=== PATIENT | female | born 1955 | race Caucasian/White ===

== ENCOUNTER → 2020-06-16 | Outpatient (CLI) | payer OTHER | END | disposition home or self-care (01) | LOC: SHCH 15:22 | PROVIDERS: ATTEND Internal Medicine Cardiovascular Disease | DX: R94.31 Abnormal electrocardiogram [ECG] [EKG] (principal) | CPT/HCPCS: 93306; 93356 ==

== ENCOUNTER → 2020-06-28 | Outpatient (CLI) | payer OTHER ==
[~2020-06-28] MED LIST: AMINOPHYLLINE 250MG/10 ML VIAL IV SCH; REGADENOSON 0.4 MG/5 ML PF SYG IVP SCH
[2020-06-28 10:54] VITALS: BP 153/89
[2020-06-28 10:56] VITALS: BP 150/91
[2020-06-28 10:58] VITALS: BP 154/95
--- NOTE | 2020-06-28 11:45 | NUR ---
AMINOPHYLLINE 50 MG GIVEN SLOW IV PUSH @ 1055 PER PROTOCOL FOR ELEVATED HR POST LEXISCAN. 1058 HR IS WNL @ 88.
== END | disposition home or self-care (01) ==
LOC: SHCH 08:47
PROVIDERS: ATTEND Internal Medicine Cardiovascular Disease
DX: R01.1 Cardiac murmur, unspecified (principal); R94.31 Abnormal electrocardiogram [ECG] [EKG]
CPT/HCPCS: 78452; 93017; 96374; A9500 ×2; J2785; J0280

== ENCOUNTER 2021-06-19 07:05 | Day surgery (SDC) | payer MEDICARE ==
[2021-06-13 11:50] LABS: BASOPHILS % (AUTO) 0.4 % (0.0-5.0); EOSINOPHILS % (AUTO) 0.7 % (0.0-8.0); HEMATOCRIT 42.9 % (36-48); LYMPHOCYTES % (AUTO) 21.5 % (21.0-51.0); MEAN CORPUSCULAR HEMOGLOBIN 29.7 pg (27.0-33.0); MEAN CORPUSCULAR HGB CONC 33.3 g/dL (32.0-36.0); MEAN CORPUSCULAR VOLUME 89.2 fL (79-99); MONOCYTES % (AUTO) 6.4 % (3.0-13.0); NEUTROPHILS % (AUTO) 70.8 % (40.0-77.0); PLATELET COUNT (AUTO) 243 K/uL (130-400); RED BLOOD CELL COUNT(AUTO) 4.81 MIL/uL (4.00-5.50); RED CELL DISTRIBUTION WIDTH 11.9 % (11.0-15.5); WHITE BLOOD COUNT (AUTO) 8.4 K/uL (4.8-10.8)
[2021-06-13 12:08] LABS: POTASSIUM 3.9 mmol/L (3.5-5.1)
[2021-06-16 12:31] VITALS: BP 113/69
[~2021-06-19] VITALS: Ht 154.9 cm; Wt 75.7 kg
[2021-06-19] VITALS (18 sets, daily range): BP systolic 108–156; BP diastolic 57–88
[~2021-06-19 07:05] MED LIST changes: -AMINOPHYLLINE 250MG/10 ML VIAL IV SCH; +ASCO250T22 PO; +BIOT10006 PO; +LEVO25TA54 PO; +MAGN250T10 PO; +METO-408 PO; +PRAV40TA3 PO; -REGADENOSON 0.4 MG/5 ML PF SYG IVP SCH; +TELM1TAB31 PO; +TUMERIC CURCUMIN PO; +UBID100C45 PO; +VITA1CAP85 SL; +VITAMIN D3 PO; +[UNRECOGNIZED DRUG - OTHER] PO
[2021-06-19] MEDS ORDERED: PROPOFOL 10 MG/ML 20ML VIAL IV ONE (07:41)
[2021-06-19] MEDS ORDERED: ONDANSETRON 4MG INJ ONE (07:41)
[2021-06-19] MEDS ORDERED: DEXAMETHASONE SOD PHOSPHATE 10MG/ML 1ML VIAL ONE (07:41)
[2021-06-19] MEDS ORDERED: LIDOCAINE PF 100MG/5ML (2%) SYRINGE 5ML ONE (07:41)
[2021-06-19] MEDS ORDERED: SUCCINYLCHOLINE 200MG/10ML SYR ONE (07:41)
[2021-06-19] MEDS ORDERED: GLYCOPYRROLATE 1 MG/5 ML SYRINGE ONE (07:41)
[2021-06-19] MEDS ORDERED: MEPERIDINE-PF 25 MG/ML SYG ONE ×3 (07:42→10:48)
[2021-06-19] MEDS ORDERED: MIDAZOLAM HCL 1 MG/ML 2ML VIAL ONE (07:42)
[2021-06-19] MEDS ORDERED: NEOSTIGMINE 5MG/5ML SYR IV ONE (07:42)
[2021-06-19] MEDS ORDERED: FENTANYL CITRATE PF 50 MCG/1 ML 2ML VIAL ONE (07:42)
[2021-06-19] MEDS ORDERED: ROCURONIUM 10MG/1ML SYR 10 MG/ML ML ONE (07:42)
[2021-06-19] MEDS ORDERED: LACTATED RINGERS 1000ML 1,000 ML IV ONE (07:46)
[2021-06-19] MEDS ORDERED: CEFAZOLIN SODIUM 1 GM VIAL ONE (07:46)
[2021-06-19] MEDS ORDERED: BUPIVACAINE/PF 0.5% 10ML VIAL ONE (07:49)
[2021-06-19] MEDS ORDERED: PHENYLEPHRINE HCL 10 MG/ML 1ML VIAL IV ONE (09:37)
[2021-06-19] MEDS ORDERED: LIDOCAINE HCL MPF 1% 5ML VIAL ONE (10:03)
[2021-06-19] MEDS ORDERED: ACETAMINOPHEN WITH CODEINE 1 TAB TAB ONE (11:38)
== END 2021-06-19 12:10 | disposition home or self-care (01) ==
LOC: DAH 07:05
PROVIDERS: ATTEND Surgery
DX: K43.0 Incisional hernia with obstruction, without gangrene (principal); I10 Essential (primary) hypertension; K21.9 Gastro-esophageal reflux disease without esophagitis; Z90.710 Acquired absence of both cervix and uterus; Z88.1 Allergy status to other antibiotic agents; Z88.2 Allergy status to sulfonamides; Z88.6 Allergy status to analgesic agent
CPT/HCPCS: 36415; 49561; 71045; 80048; 85025; 87635; 93005; A4215; A4221; A4222; A4223; A4452; A4649; A4663; A4930; A6260; C9803; J0330; J0690; J1100; J2001; J2175 ×3; J2250; J2370; J2405; J2704; J2710; J3010; J3490 ×3; J7120

== ENCOUNTER → 2022-03-22 | Outpatient (CLI) | payer MEDICARE | END | disposition home or self-care (01) | LOC: SHCH 14:37 | PROVIDERS: ATTEND Internal Medicine Cardiovascular Disease | DX: I87.2 Venous insufficiency (chronic) (peripheral) (principal); I80.201 Phlebitis and thrombophlebitis of unspecified deep vessels of right lower extremity | CPT/HCPCS: 93970 ==

== ENCOUNTER 2023-06-07 07:45 | Inpatient (IN) | payer MEDICARE ==
[2023-06-05 13:21] VITALS: BP 132/66; PULSE 89; RESP 17
[2023-06-05 13:26] LABS: BASOPHILS # (AUTO) 0.03 K/uL (0.00-0.20); BASOPHILS % (AUTO) 0.4 % (0.0-5.0); EOSINOPHILS # (AUTO) 0.03 K/uL (0.00-0.70); EOSINOPHILS % (AUTO) 0.4 % (0.0-8.0); HEMATOCRIT 43.5 % (36-48); IMMATURE GRANULOCYTE ABSOLUTE 0.02 K/uL (0-1); LYMPHOCYTES # (AUTO) 1.6 K/uL (1.0-4.8); LYMPHOCYTES % (AUTO) 21.7 % (21.0-51.0); MEAN CORPUSCULAR HEMOGLOBIN 29.5 pg (27.0-33.0); MEAN CORPUSCULAR HGB CONC 33.8 g/dL (32.0-36.0); MEAN CORPUSCULAR VOLUME 87.2 fL (79-99); MONOCYTES # (AUTO) 0.5 K/uL (0.1-1.0); MONOCYTES % (AUTO) 7.3 % (3.0-13.0); NEUTROPHILS # (AUTO) 5.1 K/uL (1.8-7.7); NEUTROPHILS % (AUTO) 69.9 % (40.0-77.0); PLATELET COUNT (AUTO) 272 K/uL (130-400); RED BLOOD CELL COUNT(AUTO) 4.99 MIL/uL (4.00-5.50); WHITE BLOOD COUNT (AUTO) 7.2 K/uL (4.8-10.8)
[2023-06-05 13:37] LABS: CREATININE 1.1 mg/dL (0.5-1.5); POTASSIUM 3.6 mmol/L (3.5-5.1)
[2023-06-05 13:47] LABS: INR 0.99 (0.85-1.15); PARTIAL THROMBOPLASTIN TIME 27.9 SEC (26.3-35.5); PROTHROMBIN TIME 10.7 SEC (9.6-11.6)
[2023-06-07] VITALS (28 sets, daily range): BP systolic 104–141; BP diastolic 55–91; PULSE 69–105; RESP 15–18; O2SAT 100
[~2023-06-07] VITALS: Ht 156.2 cm; Wt 75.8 kg
[~2023-06-07 07:45] MED LIST changes: +CRAN400T3 PO; +DEXAMETHASONE SOD PHOSPHATE 10MG/ML 1ML VIAL ONE; +FENTANYL CITRATE PF 50 MCG/1 ML 5ML AMP IV ONE; +FISH1CAP27 PO; +FLUT16H NASAL; +GABA-529 PO; +GLYCOPYRROLATE 1 MG/5 ML SYRINGE ONE; +KETO1DRO3 OP; +LACTATED RINGERS 1000ML 1,000 ML IV ONE; +LIDOCAINE PF 100MG/5ML (2%) SYRINGE 5ML ONE; +MIDAZOLAM HCL 1 MG/ML 2ML VIAL ONE; +NEOSTIGMINE 5MG/5ML SYR IV ONE; +ONDANSETRON 4MG INJ ONE; +PANT40GR PO; +PROPOFOL 10 MG/ML 20ML VIAL IV ONE; +ROCURONIUM 10MG/1ML SYR 10 MG/ML ML ONE; +SUCCINYLCHOLINE 200MG/10ML SYR ONE; +VITA800012 PO
[2023-06-07] MEDS ORDERED: LIDOCAINE HCL-MPF 2% 10ML AMP IJ ONE (07:58)
[2023-06-07] MEDS ORDERED: MIDAZOLAM HCL 1 MG/ML 5ML VIAL ONE (08:05)
[2023-06-07] MEDS ORDERED: KETAMINE 50MG/ML SYRINGE 50 MG/ML DISP.SYRIN ONE (08:05)
[2023-06-07] MEDS: CEFAZOLIN SODIUM 2 GM VIAL ONE ×2 (08:09→09:35)
[2023-06-07] MEDS ORDERED: BUPIVACAINE/PF 0.5% 10ML VIAL ONE (08:34)
[2023-06-07] MEDS ORDERED: ROPIVACAINE 0.5% 5MG/ML 30ML IJ ONE (09:08)
[2023-06-07] MEDS ORDERED: HYDROMORPHONE 1 MG INJ ONE (09:10)
[2023-06-07] MEDS ORDERED: FENTANYL CITRATE PF 50 MCG/1 ML 5ML AMP IV ONE (09:38)
[2023-06-07] MEDS ORDERED: EPHEDRINE SULFATE 50 MG/ML AMPULE ONE (09:59)
[2023-06-07] MEDS ORDERED: ONDANSETRON 4MG INJ ONE (11:09)
[2023-06-07] MEDS ORDERED: MEPERIDINE-PF 25 MG/ML SYG ONE ×2 (11:09→11:22)
[2023-06-07] MEDS ORDERED: KETOROLAC 15MG/ML VIAL (15MG/ML) ONE (11:42)
[2023-06-07] MEDS ORDERED: MORPHINE 4 MG SYG IM PRN (13:00)
[2023-06-07] MEDS ORDERED: CEFAZOLIN SODIUM 2 GM VIAL IVPB SCH (13:00)
[2023-06-07] MEDS ORDERED: KETOROLAC 15MG/ML VIAL (15MG/ML) IM PRN (13:00)
[2023-06-07] MEDS: LACTATED RINGERS 1000ML 1,000 ML IV SCH ×2 (15:34→22:17)
[2023-06-07] MEDS: CEFAZOLIN SODIUM 2 GM VIAL IVPB SCH (17:12)
[2023-06-07] MEDS: ONDANSETRON 4MG INJ IVP PRN (20:31)
[2023-06-07] MEDS: KETOROLAC 30MG VIAL (30MG/ML) IV PRN (21:09)
[2023-06-08] VITALS (8 sets, daily range): BP systolic 118–148; BP diastolic 65–80; PULSE 80–106; RESP 18–20; O2SAT 94–100
[2023-06-08] MEDS: CEFAZOLIN SODIUM 2 GM VIAL IVPB SCH ×3 (00:19→16:34)
[2023-06-08] MEDS ORDERED: MORPHINE 4 MG SYG IV PRN (01:00)
[2023-06-08] MEDS ORDERED: KETOROLAC 30MG VIAL (30MG/ML) IV PRN (01:00)
[2023-06-08] MEDS: LACTATED RINGERS 1000ML 1,000 ML IV SCH ×2 (02:41→19:00)
[2023-06-08] MEDS: MORPHINE 4 MG SYG IV PRN ×2 (05:05→12:52)
[2023-06-08 05:07] LABS: BASOPHILS # (AUTO) 0.02 K/uL (0.00-0.20); BASOPHILS % (AUTO) 0.1 % (0.0-5.0); IMMATURE GRANULOCYTE ABSOLUTE 0.06 K/uL (0-1); LYMPHOCYTES # (AUTO) 0.8 K/uL (1.0-4.8); LYMPHOCYTES % (AUTO) 6.2 % (21.0-51.0); MEAN CORPUSCULAR HEMOGLOBIN 29.9 pg (27.0-33.0); MEAN CORPUSCULAR HGB CONC 33.7 g/dL (32.0-36.0); MEAN CORPUSCULAR VOLUME 88.8 fL (79-99); MONOCYTES # (AUTO) 1.2 K/uL (0.1-1.0); MONOCYTES % (AUTO) 8.5 % (3.0-13.0); NEUTROPHILS # (AUTO) 11.5 K/uL (1.8-7.7); NEUTROPHILS % (AUTO) 84.8 % (40.0-77.0); PLATELET COUNT (AUTO) 200 K/uL (130-400); RED BLOOD CELL COUNT(AUTO) 3.94 MIL/uL (4.00-5.50); WHITE BLOOD COUNT (AUTO) 13.5 K/uL (4.8-10.8)
[2023-06-08] MEDS: ONDANSETRON 4MG INJ IVP PRN ×2 (05:14→12:53)
[2023-06-08 05:15] LABS: CREATININE 0.9 mg/dL (0.5-1.5); POTASSIUM 3.8 mmol/L (3.5-5.1)
[2023-06-08 05:41] LABS: WBC MORPHOLOGY CONSISTENT W/DIFF
[2023-06-08] MEDS: KETOROLAC 30MG VIAL (30MG/ML) IV PRN (09:53)
[2023-06-08] MEDS ORDERED: DOCUSATE SODIUM 100 MG CAP PO ONE (16:30)
[2023-06-08] MEDS: TRAMADOL /APAP 37.5MG/325MG TAB PO SCH ×2 (16:49→22:34)
[2023-06-08] MEDS: SIMETHICONE 80 MG TAB.CHEW PO PRN (19:21)
[2023-06-08] MEDS: GABAPENTIN 100 MG CAPSULE PO SCH (20:36)
[2023-06-09] MEDS: CEFAZOLIN SODIUM 2 GM VIAL IVPB SCH ×2 (01:50→08:43)
[2023-06-09] MEDS: LACTATED RINGERS 1000ML 1,000 ML IV SCH ×2 (03:19→15:00)
[2023-06-09 04:00] VITALS: BP 148/82; PULSE 85; RESP 20
[2023-06-09] MEDS: TRAMADOL /APAP 37.5MG/325MG TAB PO SCH ×4 (05:09→22:33)
[2023-06-09] MEDS: SIMETHICONE 80 MG TAB.CHEW PO PRN ×3 (05:12→15:52)
[2023-06-09 08:00] VITALS: BP 135/92; PULSE 102; RESP 20; O2SAT 93
[2023-06-09] MEDS: GABAPENTIN 100 MG CAPSULE PO SCH ×3 (08:43→20:57)
[2023-06-09] MEDS: KETOROLAC 30MG VIAL (30MG/ML) IV PRN ×2 (08:44→20:58)
[2023-06-09 12:00] VITALS: BP 134/77; PULSE 94; RESP 20
[2023-06-09 16:00] VITALS: BP 133/83; PULSE 89; RESP 20
[2023-06-09 20:41] VITALS: BP 147/88; PULSE 84; RESP 18
[2023-06-09 21:00] VITALS: O2SAT 96
[2023-06-10] MEDS: LACTATED RINGERS 1000ML 1,000 ML IV SCH ×4 (00:04→21:47)
[2023-06-10 00:06] VITALS: BP 143/87; PULSE 87; RESP 18
[2023-06-10 03:56] VITALS: BP 134/88; PULSE 82; RESP 18
[2023-06-10] MEDS: TRAMADOL /APAP 37.5MG/325MG TAB PO SCH ×4 (04:27→22:30)
[2023-06-10 08:00] VITALS: BP 129/75; PULSE 72; RESP 14; O2SAT 91
[2023-06-10] MEDS: GABAPENTIN 100 MG CAPSULE PO SCH ×2 (09:00→21:40)
[2023-06-10] MEDS: KETOROLAC 30MG VIAL (30MG/ML) IV PRN (11:59)
[2023-06-10 12:00] VITALS: BP 132/87; PULSE 83; RESP 14
[2023-06-10 16:00] VITALS: BP 147/78; PULSE 87; RESP 14
[2023-06-10 20:27] VITALS: BP 160/86; PULSE 96; RESP 19
[2023-06-10] MEDS: PRAVASTATIN SODIUM 40 MG PO SCH (21:00)
[2023-06-10] MEDS: ACUVAIL OS SCH (21:00)
[2023-06-10] MEDS: METOPROLOL SUCCINATE 25 MG TAB.SR.24H PO SCH (21:40)
[2023-06-10] MEDS: SIMETHICONE 80 MG TAB.CHEW PO PRN (21:40)
[2023-06-10] MEDS: MORPHINE 4 MG SYG IV PRN (22:13)
[2023-06-11] VITALS (8 sets, daily range): BP systolic 124–162; BP diastolic 72–94; PULSE 61–94; RESP 18–19; O2SAT 93–98
[2023-06-11] MEDS: TRAMADOL /APAP 37.5MG/325MG TAB PO SCH ×4 (05:16→22:06)
[2023-06-11] MEDS: LEVOTHYROXINE 25 MCG TABLET PO SCH (06:11)
[2023-06-11] MEDS: GABAPENTIN 100 MG CAPSULE PO SCH ×2 (09:00→19:57)
[2023-06-11] MEDS ORDERED: ENOXAPARIN SODIUM 30 MG/0.3 ML SQ SCH (09:00)
[2023-06-11] MEDS ORDERED: NON-FORMULARY MEDICATION 1 EACH (Pantoprazole Sodium 40 MG) PO SCH (09:00)
[2023-06-11] MEDS: ACUVAIL OS SCH ×3 (09:00→20:06)
[2023-06-11 09:54] LABS: HEMATOCRIT 34.9 % (36-48); MEAN CORPUSCULAR HEMOGLOBIN 30.2 pg (27.0-33.0); MEAN CORPUSCULAR HGB CONC 34.4 g/dL (32.0-36.0); MEAN CORPUSCULAR VOLUME 87.7 fL (79-99); RED BLOOD CELL COUNT(AUTO) 3.98 MIL/uL (4.00-5.50)
[2023-06-11 10:09] LABS: CREATININE 0.9 mg/dL (0.5-1.5); POTASSIUM 3.1 mmol/L (3.5-5.1)
[2023-06-11] MEDS: LACTATED RINGERS 1000ML 1,000 ML IV SCH (10:57)
[2023-06-11] MEDS: AZITHROMYCIN 500MG+NS 250ML IVPB SCH (10:58)
[2023-06-11] MEDS: ENOXAPARIN SODIUM 30 MG/0.3 ML SQ SCH (10:58)
[2023-06-11] MEDS: CEFTRIAXONE 2GM VIAL IVPB SCH (11:00)
[2023-06-11] MEDS: KETOROLAC 30MG VIAL (30MG/ML) IV PRN ×2 (11:22→18:19)
[2023-06-11] MEDS: METOPROLOL SUCCINATE 25 MG TAB.SR.24H PO SCH (19:56)
[2023-06-11] MEDS: PRAVASTATIN SODIUM 40 MG PO SCH (20:06)
[2023-06-12] MEDS: TRAMADOL /APAP 37.5MG/325MG TAB PO SCH ×3 (04:43→19:48)
[2023-06-12] MEDS: LACTATED RINGERS 1000ML 1,000 ML IV SCH ×2 (04:44→19:45)
[2023-06-12 05:48] VITALS: BP 149/92; PULSE 81; RESP 18
[2023-06-12 05:49] LABS: HEMATOCRIT 35.2 % (36-48); MEAN CORPUSCULAR HEMOGLOBIN 29.6 pg (27.0-33.0); MEAN CORPUSCULAR HGB CONC 32.7 g/dL (32.0-36.0); MEAN CORPUSCULAR VOLUME 90.5 fL (79-99); RED BLOOD CELL COUNT(AUTO) 3.89 MIL/uL (4.00-5.50); WHITE BLOOD COUNT (AUTO) 8.1 K/uL (4.8-10.8)
[2023-06-12] MEDS: LEVOTHYROXINE 25 MCG TABLET PO SCH (06:08)
[2023-06-12 06:17] LABS: ALBUMIN 2.9 g/dL (3.5-5.0); BILIRUBIN,DIRECT 0.1 mg/dL (0.0-0.3); BILIRUBIN,TOTAL 0.3 mg/dL (0.2-1.0); CREATININE 0.9 mg/dL (0.5-1.5); TOTAL PROTEIN, SERUM 6.6 g/dL (6.0-8.3)
[2023-06-12 06:19] LABS: POTASSIUM 2.8 mmol/L (3.5-5.1)
[2023-06-12 08:00] VITALS: BP 138/78; PULSE 72; RESP 16; O2SAT 96
[2023-06-12] MEDS: AZITHROMYCIN 500MG+NS 250ML IVPB SCH (09:14)
[2023-06-12] MEDS: ENOXAPARIN SODIUM 30 MG/0.3 ML SQ SCH (09:17)
[2023-06-12] MEDS: GABAPENTIN 100 MG CAPSULE PO SCH ×2 (09:18→19:48)
[2023-06-12 12:00] VITALS: BP 146/88; PULSE 77; RESP 16
[2023-06-12] MEDS ORDERED: DOCUSATE NA 100MG/10ML UDCUP PO ONE (13:00)
[2023-06-12] MEDS: CEFTRIAXONE 2GM VIAL IVPB SCH (13:00)
[2023-06-12] MEDS ORDERED: LACTULOSE 20 GM/30 ML UDCUP PO PRN (13:30)
[2023-06-12 16:00] VITALS: BP 141/83; PULSE 72; RESP 14
[2023-06-12] MEDS ORDERED: POTASSIUM CHLORIDE 10% ELIXIR 20 MEQ/15 ML UDCUP PO PRN (18:30)
[2023-06-12] MEDS ORDERED: POTASSIUM CHLORIDE 20MEQ/100ML 100 ML IV PRN (18:30)
[2023-06-12 19:10] VITALS: O2SAT 94
[2023-06-12 19:22] VITALS: BP 161/83; PULSE 82; RESP 20
[2023-06-12] MEDS: METOPROLOL SUCCINATE 25 MG TAB.SR.24H PO SCH (19:48)
[2023-06-12] MEDS: KCL 20 MEQ ERTAB PO PRN ×4 (19:49→23:28)
[2023-06-12] MEDS: PRAVASTATIN SODIUM 40 MG PO SCH (19:49)
[2023-06-12] MEDS: ACUVAIL OS SCH (19:49)
[2023-06-13 00:07] VITALS: BP 148/92; PULSE 83; RESP 20
[2023-06-13 03:42] VITALS: BP 132/79; PULSE 76; RESP 16
[2023-06-13] MEDS: TRAMADOL /APAP 37.5MG/325MG TAB PO SCH ×2 (04:30→11:53)
[2023-06-13] MEDS: LEVOTHYROXINE 25 MCG TABLET PO SCH (05:01)
[2023-06-13 05:14] LABS: HEMATOCRIT 32.9 % (36-48); MEAN CORPUSCULAR HEMOGLOBIN 29.9 pg (27.0-33.0); MEAN CORPUSCULAR HGB CONC 33.1 g/dL (32.0-36.0); MEAN CORPUSCULAR VOLUME 90.4 fL (79-99); RED BLOOD CELL COUNT(AUTO) 3.64 MIL/uL (4.00-5.50); RED CELL DISTRIBUTION WIDTH 12.2 % (11.0-15.5); WHITE BLOOD COUNT (AUTO) 8.1 K/uL (4.8-10.8)
[2023-06-13 07:54] VITALS: BP 143/86; PULSE 79; RESP 18
[2023-06-13 08:00] VITALS: O2SAT 98
[2023-06-13] MEDS: ACUVAIL OS SCH (09:00)
[2023-06-13] MEDS: GABAPENTIN 100 MG CAPSULE PO SCH (09:11)
[2023-06-13] MEDS: AZITHROMYCIN 500MG+NS 250ML IVPB SCH (09:12)
[2023-06-13] MEDS: CEFTRIAXONE 2GM VIAL IVPB SCH (09:12)
[2023-06-13] MEDS: ENOXAPARIN SODIUM 30 MG/0.3 ML SQ SCH (09:12)
[2023-06-13 11:36] VITALS: BP 149/80; PULSE 76; RESP 18
== END 2023-06-13 14:20 | DRG 353 ==
LOC: DAH 07:45 → OBSVTOIN 07:46 → DAHIP 07:46 → DAH 07:46 → 3AH 12:10
PROVIDERS: ADMIT Surgery; ATTEND Surgery
PROC: 0WUF0JZ Supplement Abdominal Wall with Synthetic Substitute, Open Approach (ICD-10-PCS; principal; 2023-06-07 09:12)
DX: K43.2 Incisional hernia without obstruction or gangrene (principal); J18.9 Pneumonia, unspecified organism; K56.7 Ileus, unspecified; R33.9 Retention of urine, unspecified; E03.9 Hypothyroidism, unspecified; E66.09 Other obesity due to excess calories; I10 Essential (primary) hypertension; Z68.31 Body mass index [BMI] 31.0-31.9, adult
CPT/HCPCS: 36415; 71045; 74018; 80048; 80076; 84145; 85025; 85027; 85610; 85730; 93005; 93970; 97039; G0378; J0330; J0456; J0696; J1100; J1170; J1650; J1885; J2001; J2175; J2250; J2270; J2405; J2704; J2710; J2795; J3010; J3480; J3490; J7030; J7120; A4221; A4222; A4223; A4600; A4649; A4663; C1769; C1781; G8980-CI; G8983-CI; J0690

== ENCOUNTER → 2023-07-16 | Outpatient (CLI) | payer MEDICARE ==
[~2023-07-16] MED LIST changes: -DEXAMETHASONE SOD PHOSPHATE 10MG/ML 1ML VIAL ONE; -FENTANYL CITRATE PF 50 MCG/1 ML 5ML AMP IV ONE; -GLYCOPYRROLATE 1 MG/5 ML SYRINGE ONE; -LACTATED RINGERS 1000ML 1,000 ML IV ONE; -LIDOCAINE PF 100MG/5ML (2%) SYRINGE 5ML ONE; -MIDAZOLAM HCL 1 MG/ML 2ML VIAL ONE; -NEOSTIGMINE 5MG/5ML SYR IV ONE; -ONDANSETRON 4MG INJ ONE; -PROPOFOL 10 MG/ML 20ML VIAL IV ONE; -ROCURONIUM 10MG/1ML SYR 10 MG/ML ML ONE; -SUCCINYLCHOLINE 200MG/10ML SYR ONE
== END | disposition home or self-care (01) ==
LOC: SHCH 09:36
PROVIDERS: ATTEND Internal Medicine Cardiovascular Disease
DX: I34.0 Nonrheumatic mitral (valve) insufficiency (principal); I11.9 Hypertensive heart disease without heart failure; E11.9 Type 2 diabetes mellitus without complications; E78.5 Hyperlipidemia, unspecified; R60.9 Edema, unspecified
CPT/HCPCS: 93306

== ENCOUNTER → 2023-09-10 | Outpatient (CLI) | payer MEDICARE ==
[2023-09-10 23:09] VITALS: PULSE 83; RESP 10
[2023-09-10 23:34] VITALS: PULSE 79; RESP 10
[2023-09-11] VITALS (12 sets, daily range): PULSE 65–80; RESP 10–14
== END | disposition home or self-care (01) ==
LOC: SLP 20:35
PROVIDERS: ATTEND Nurse Practitioner Family
DX: G47.33 Obstructive sleep apnea (adult) (pediatric) (principal)
CPT/HCPCS: 95810

== ENCOUNTER → 2023-09-20 | Outpatient (CLI) | payer MEDICARE ==
[2023-09-20 22:46] VITALS: PULSE 70; RESP 8
[2023-09-20 23:30] VITALS: PULSE 72; RESP 6
[2023-09-21] VITALS (11 sets, daily range): PULSE 64–72; RESP 8–16
== END | disposition home or self-care (01) ==
LOC: SLP 20:36
PROVIDERS: ATTEND Nurse Practitioner Family
DX: G47.33 Obstructive sleep apnea (adult) (pediatric) (principal)
CPT/HCPCS: 95811

== ENCOUNTER 2025-06-09 22:30 | Emergency (ER) | payer MEDICARE ==
[~2025-06-09] VITALS: Ht 157.5 cm; Wt 73.5 kg
[~2025-06-09 22:30] MED LIST changes: +ASCO-515 PO; -ASCO250T22 PO; -PRAV40TA3 PO; +PRAV40TA62 PO; -TELM1TAB31 PO; +TELM1TAB86 PO
[2025-06-09 22:33] VITALS: TEMP 98
--- NOTE | 2025-06-09 23:31 | ERN ---
ED Note History of Present Illness Stated Complaint: C/O ABD PAIN, CHEST WALL PAIN AFTER FALL ON 05/24 Chief Complaint: Mechanical Fall Time Seen by MD: 22:34 Time Seen by Midlevel: 22:34 Dictation: The Patient is a 69-year-old female with a history of hypertension, hyperlipidemia who presents to the emergency department with left-sided anterior rib pain onset May 24 after she had an accidental fall. Patient reports that misstepped on gravel because the floor was not even causing her to fall to her left side. Patient denies any LOC or head trauma. Reports she did not seek help because she was taking care of her mother during that time. Patient reports pain is worse with movement. Reports it is worse when she lifts up her hands. Allergies: Coded Allergies: aspirin (Unverified Allergy, Unknown, 06/27/20) sulfamethoxazole (Unverified Allergy, Unknown, 06/27/20) trimethoprim (Unverified Allergy, Unknown, 06/27/20) Home Meds Reported Medications Vitamin A (Vitamin A) 2,400 Mcg Capsule, 2400 MCG PO AM, CAP 06/05/23 Cranberry Fruit (Cranberry) 400 Mg Tablet, 400 MG PO AM, TAB 06/05/23 [place]-3 Fatty Acids/Fish Oil ([place] 3 1,000 mg Softgel) 300 Mg-1,000 Mg Capsule, 1 EACH PO AM, CAP 06/05/23 Fluticasone Propionate (Flonase Nasal Phenix) 50 Mcg/Actuation Phenix, 50 MCG NASAL AM, SPRAY 06/05/23 Gabapentin (Gabapentin) 100 Mg Capsule, 100 MG PO HS, CAP 06/05/23 Pantoprazole Sodium (Pantoprazole Sodium) 40 Mg Granpkt.dr, 40 MG PO AM, PACK 06/05/23 Ketorolac Tromethamine/Pf (Acuvail 0.45% Ophth Solution) 0.45 % Droperette, 1 EACH OP TID, DROP 06/05/23 Ascorbic Acid (Vitamin C) 250 Mg Tablet, 250 MG PO NOON, TAB 06/16/21 Magnesium Oxide (Magnesium) 250 Mg Tablet, 250 MG PO QODAY, TAB 06/16/21 [Vitamin D3] No Conflict Check, 84798 UNITS PO NOON 06/16/21 [Vision Support] No Conflict Check, 1 TAB PO NOON 06/16/21 [Tumeric Curcumin] No Conflict Check, 500 MG PO NOON 06/16/21 Ubidecarenone (Co Q-10) 100 Mg Capsule, 100 MG PO NOON, CAP 06/16/21 Biotin (Biotin) 10,000 Mcg Tab.rapdis, 82643 MCG PO NOON, TAB 06/16/21 Vitamin B Complex (Vitamin B Complex) 1 Each Capsule, 1 EACH SL NOON, CAP 06/16/21 Metoprolol Succinate (Metoprolol Succinate) 25 Mg Tab.er.24h, 25 MG PO HS, TAB 06/16/21 Pravastatin Sodium (Pravastatin Sodium) 40 Mg Tablet, 40 MG PO HS, TAB 06/16/21 Levothyroxine Sodium (Levothyroxine Sodium) 25 Mcg Tablet, 25 MCG PO NOON, TAB 06/16/21 Telmisartan/Hydrochlorothiazid (Telmisartan-Hctz 40-12.5 mg Tb) 40 Mg-12.5 Mg Tablet, 1 EACH PO NOON for 30 Days, TAB 06/16/21 Past Medical History Past Medical History: High Cholesterol, Hypertension, Hypothyroid Surgical History: Other Surgical History Other: HERNIA REPAIR RN Note Reviewed/Agreed w/PFSH: Yes Review of System Dictation Constitutional: Negative for fever,chills, and weight loss Eyes: Negative for injury, pain,redness, and discharge ENT: Negative for injury,pain or swelling Cardiovascular: Negative for palpitations, and edema Respiratory: Negative for shortness of breath, cough, and wheezing, Abdomen/GI: Negative for abdominal pain, nausea, vomiting, diarrhea, and constipation Back: Negative for injury and pain : Negative for injury, bleeding and discharge MS/Extremity: Negative for injury and deformity positive for left rib pain Skin: Negative for rash, and discoloration Neuro: Negative for headache, weakness, numbness, tingling, and seizure Psych: Negative for suicide ideation, homicidal ideation, and hallucinations Initial Vital Sign VS Vital Signs Date Time Temp Pulse Resp B/P (MAP) Pulse Ox O2 Delivery O2 Flow Rate FiO2 06/09/25 22:33 98.1 104 20 167/95 98 Room Air 06/10/25 01:27 0 21 Physical Exam Dictation Vital Signs reviewed General Appearance: Alert, oriented x 3, no acute distress, well developed, nourished. Head and Face: non-traumatic. Eyes: PERRL, pink conjunctivas, eyelid no trauma, anterior chamber with arcus senilis. Ears: Pinnas intact and no signs of trauma or erythema ear canals clear and no discharge TM no erythema Nose: No discharge, no bleeding. Oropharynx: Mouth normal, tongue pink. pharynx clear,no erythema, tonsils no exudates, no abscesses noted, mucous membrane moist Neck: Supple, non-tender, no thyromegaly, no masses, no JVD, no bruits Breast:Deferred Chest:, no crepitus, no paradoxical movement, no retractions tenderness to left anterior ribs, no contusions, no bruising, no hematomas Lungs:Clear, well-ventilated, symmetric, no rales, no wheezing, no rhonchi, no stridor, good breath sounds bilaterally Heart: Regular rate, regular rhythm, no murmur, no gallops Vascular: no peripheral edema, Abdomen: Soft, positive bowel sounds, nondistended, no guarding, nontender, no rebound, no masses no hepatomegaly, no splenomegaly, no Carrion's sign, no hernias. Rectal: Deferred Genital: Deferred Neurological: Normal speech, motor function intact, sensory function intact Musculoskeletal: Neck nontender, full range of motion, back nontender, full range of motion, Extremities: nontender, full range of motion Skin: Color pink, dry, no turgor, no rash, no lacerations, no abrasions, no contusions. Lymphatic: Deferred Results (Laboratory/Radiology) Laboratory/Radiology Laboratory Tests Test 06/10/25 00:47 White Blood Count 7.1 K/uL (4.8-10.8) Red Blood Count 4.76 MIL/uL (4.00-5.50) Hemoglobin 14.1 g/dL (12.0-16.0) Hematocrit 42.0 % (36-48) Mean Corpuscular Volume 88.2 fL (79-99) Mean Corpuscular Hemoglobin 29.6 pg (27.0-33.0) Mean Corpuscular Hemoglobin Concent 33.6 g/dL (32.0-36.0) Red Cell Distribution Width 11.9 % (11.0-15.5) Platelet Count 256 K/uL (130-400) Mean Platelet Volume 9.8 fL (7.5-10.5) Immature Granulocyte % (Auto) 0.3 % (0-1) Neutrophils (%) (Auto) 66.6 % (40.0-77.0) Lymphocytes (%) (Auto) 22.8 % (21.0-51.0) Monocytes (%) (Auto) 8.7 % (3.0-13.0) Eosinophils (%) (Auto) 1.3 % (0.0-8.0) Basophils (%) (Auto) 0.3 % (0.0-5.0) Neutrophils # (Auto) 4.8 K/uL (1.8-7.7) Lymphocytes # (Auto) 1.6 K/uL (1.0-4.8) Monocytes # (Auto) 0.6 K/uL (0.1-1.0) Eosinophils # (Auto) 0.09 K/uL (0.00-0.70) Basophils # (Auto) 0.02 K/uL (0.00-0.20) Absolute Immature Granulocyte (auto 0.02 K/uL (0-1) Nucleated Red Blood Cells 0.0 % (0.0-0.19) Sodium Level 142 mmol/L (136-145) Potassium Level 3.2 mmol/L (3.5-5.1) L Chloride Level 102 mmol/L (101-111) Carbon Dioxide Level 31 mmol/L (21-32) Blood Urea Nitrogen 15 mg/dL (7-18) Creatinine 0.9 mg/dL (0.5-1.0) Glomerular Filtration Rate Calc 70 mL/min (>90) Random Glucose 99 mg/dL (70-105) Total Calcium 10.0 mg/dL (8.5-10.1) Total Bilirubin 0.4 mg/dL (0.2-1.0) Aspartate Amino Transf (AST/SGOT) 23 U/L (10-37) Alanine Aminotransferase (ALT/SGPT) 25 U/L (12-78) Alkaline Phosphatase 137 U/L (50-136) H Troponin I High Sensitivity 28 ng/L (4-50) Total Protein 7.8 g/dL (6.0-8.3) Albumin 4.1 g/dL (3.5-5.0) Lipase 44 U/L (16-77) REASON: pain ORDERING PHYSICIAN: PRESTON WILSON LAN MANAGER PROCEDURE: RIB LT W C - RIBS UNI LT W PA CHEST 3+VWS EXAM: CR Chest and Left Ribs, 6 Views. CLINICAL HISTORY: Pain. COMPARISON: Chest radiograph dated 06/10/2023. FINDINGS: The lungs show no infiltrates or other acute findings. No pleural effusion or pneumothorax. The cardiomediastinal silhouette is within normal limits. Questionable nondisplaced acute fracture around the anterolateral aspect of the left fourth rib. Mild osteopenia. Degenerative changes. IMPRESSION: Questionable nondisplaced acute fracture around the anterolateral aspect of the left fourth rib. No acute cardiopulmonary pathology is evident. /[place] Labs Reviewed?: Yes EKG: (+) rhythm (Sinus rhythm) EKG Comment: Date:06/09/2025 Time:2311 Ventricular rate:84 NV interval:149 QRS duration:76 QT/QTc:357/422 EKG interpretation: Sinus rhythm Reviewed by ED Attending no STEMI ED Course ED Course Orders Procedure Category Date Status Time 12 Lead Ekg Tracing- EKG 06/09/25 Logged Technical 22:49 Ribs Uni Lt W Pa RAD 06/09/25 Resulted Chest 3+Vws 22:49 Acetaminophen 500mg PHA 06/09/25 Complete Tab (Tylenol 500mg T 23:00 Cbc With Differential LAB 06/10/25 Complete 00:19 Comprehensive LAB 06/10/25 Complete Metabolic Panel 00:19 Troponin I High LAB 06/10/25 Complete Sensitivity 00:19 Lipase LAB 06/10/25 Complete 00:19 Potassium Bicarb/Cit PHA 06/10/25 In Process Ac 25meq (K-Lyte Ta 02:00 Current Medications Medications (Trade) Dose Ordered Sig/Aston Route PRN Reason Start Time Stop Time Status Last Admin Dose Admin Acetaminophen (TYLenol 500MG TAB) 1,000 mg ONCE ONCE PO 06/09/25 23:00 06/09/25 23:08 DC 06/09/25 23:14 Potassium Bicarbonate (K-Lyte Tablet Eff 25 Meq Tablet.eff) 25 meq ONCE ONCE PO 06/10/25 02:00 06/10/25 02:01 Vital Signs Date Time Temp Pulse Resp B/P (MAP) Pulse Ox O2 Delivery O2 Flow Rate FiO2 06/10/25 01:27 90 18 140/82 97 Room Air* 0 21 06/09/25 22:33 98.1 104 20 167/95 98 Room Air Medical Decision Making MDM The Patient is a 69-year-old female with a history of hypertension, hyperlipidemia who presents to the emergency department with left-sided anterior rib pain onset May 24 after she had an accidental fall. Patient reports that misstepped on gravel because the floor was not even causing her to fall to her left side. Patient denies any LOC or head trauma. Reports she did not seek help because she was taking care of her mother during that time. Patient reports pain is worse with movement. Reports it is worse when she lifts up her hands. BC showed no leukocytosis, no anemia, chemistry showed mild hypokalemia, normal renal function, negative lipase, negative liver enzymes. Negative troponin. Chest x-ray showed questionable nondisplaced acute fracture around the ant erolateral aspect of the left 4th rib on physical exam patient is in no acute distress, nontoxic appearance, no bruising or contusions noted to abdomen or chest. Patient will be discharged to follow up with PCP. Differential diagnosis: Rib fracture, pneumothorax, rib contusion, musculoskeletal pain Need for hospitalization: Patient does not meet criteria for hospitalization. There are no social concerns with this patient. DX & DISP Disposition: Discharge Departure Impression: Primary Impression: Fracture of left fourth rib Additional Impression: Rib pain Condition: Stable Scripts Cyclobenzaprine HCl (Flexeril) 10 Mg Tab 10 MG PO TID for muscle sstiffness, #14 TAB 0 Refills Prov: PRESTON WILSON LAN MANAGER 06/10/25 Lidocaine (Lidocaine) 4 % Adh..patch 1 PATCH TP DAILY for 10 Days, #10 PATCH 0 Refills Prov: PRESTON WILSON LAN MANAGER 06/10/25 Additional Instructions: Your labs were unremarkable. Please follow up with the your primary doctor in 1-2 days. Take your medications as prescribed. FOLLOW-UP WITH PRIMARY CARE PROVIDER IN 1 TO 2 DAYS. TAKE MEDICATIONS DIRECTED HERE IN THE EMERGENCY ROOM. OKAY TO CONTINUE HOME MEDICATIONS UNLESS OTHERWISE DISCUSSED DURING YOUR VISIT IN THE EMERGENCY ROOM TODAY. RETURN TO YOUR NEAREST EMERGENCY ROOM IF SYMPTOMS WORSEN OR IF THERE IS NO IMPROVEMENT. CALL 911 IF YOU NEED IMMEDIATE ASSISTANCE. TAKE TYLENOL [id number] NEEDED AND IF NO CONTRAINDICATIONS ARE PRESENT. INCREASE ORAL HYDRATION. A WOU ND CULTURE OR URINE CULTURE WAS ORDERED HERE IN THE EMERGENCY ROOM DEPARTMENT PLEASE FOLLOW-UP WITH PRIMARY CARE PROVIDER AND ADVISE THEM TO GET REPEAT PORTS FROM OUR FACILITY. IF YOU HAD ANY JENNIFER WRAP/SPLINTS THAT WERE APPLIED HERE, PLEASE DO NOT REMOVE THEM UNTIL YOU SEE YOUR PRIMARY CARE OR SPECIALTY. Referrals: TAYLER CEBALLOS (PCP) Time of Disposition: 01:52 I have reviewed the case, and I agree with, Diagnosis and Plan PRESTON WILSON LAN MANAGER Jun 09, 2025 23:31
--- NOTE | 2025-06-10 00:03 | HMCIMG ---
EXAM: CR Chest and Left Ribs, 6 Views. CLINICAL HISTORY: Pain. COMPARISON: Chest radiograph dated 06/10/2023. FINDINGS: The lungs show no infiltrates or other acute findings. No pleural effusion or pneumothorax. The cardiomediastinal silhouette is within normal limits. Questionable nondisplaced acute fracture around the anterolateral aspect of the left fourth rib. Mild osteopenia. Degenerative changes. IMPRESSION: Questionable nondisplaced acute fracture around the anterolateral aspect of the left fourth rib. No acute cardiopulmonary pathology is evident. /[place]
[2025-06-10 01:25] LABS: IMMATURE GRANULOCYTE ABSOLUTE 0.02 K/uL (0-1); NUCLEATED RED BLOOD CELLS 0.0 % (0.0-0.19); PLATELET COUNT (AUTO) 256 K/uL (130-400); RED BLOOD CELL COUNT(AUTO) 4.76 MIL/uL (4.00-5.50); RED CELL DISTRIBUTION WIDTH 11.9 % (11.0-15.5); WHITE BLOOD COUNT (AUTO) 7.1 K/uL (4.8-10.8)
[2025-06-10 01:27] VITALS: BP 140/82; PULSE 90; RESP 18; O2SAT 97
[2025-06-10 01:37] LABS: CREATININE 0.9 mg/dL (0.5-1.0); GLOMERULAR FILTR. RATE CALC 70.0 mL/min (>90); GLUCOSE,RANDOM 99.0 mg/dL (70-105); SODIUM SERUM 142.0 mmol/L (136-145); UREA NITROGEN, BLOOD 15.0 mg/dL (7-18)
[2025-06-10 01:41] LABS: ASPARTATE AMINOTRANSFERASE 23.0 U/L (10-37); TOTAL PROTEIN, SERUM 7.8 g/dL (6.0-8.3)
[2025-06-10] MEDS ORDERED: CYCL10TA16 PO (01:53)
[2025-06-10] MEDS ORDERED: LIDO1ADH82 TP (01:53)
--- NOTE | 2025-06-10 06:53 | EKG ---
[facility] Test Date: 2025-06-09 Test Time: 23:11:25 Pat Name: BLU FERMIN Department: ED Room: Gender: F [employer] Supervisor: [id number] : 1955 Requested By: PRESTON WILSON Order Number: [id number] Reading MD: Ghulam Gifford Measurements Intervals [place] Rate: 84 P: 27 NV: 149 QRS: 36 QRSD: 76 T: 31 QT: 357 QTc: 422 Interpretive Statements Sinus rhythm Compared to ECG 06/05/2023 13:02:22 T-wave abnormality no longer present Electronically Signed On 06-11-2025 10:54:06 CDT by Ghulam Gifford Please click the below link to view image of tracing.
== END 2025-06-10 02:39 | disposition home or self-care (01) ==
LOC: EDH 22:30
DX: S22.32XA Fracture of one rib, left side, initial encounter for closed fracture (principal); R07.81 Pleurodynia; E78.00 Pure hypercholesterolemia, unspecified; E03.9 Hypothyroidism, unspecified; I10 Essential (primary) hypertension; Z88.1 Allergy status to other antibiotic agents; Z88.2 Allergy status to sulfonamides; Z88.6 Allergy status to analgesic agent; Z98.890 Other specified postprocedural states; W18.39XA Other fall on same level, initial encounter; Y93.89 Activity, other specified; Y92.89 Other specified places as the place of occurrence of the external cause; Y99.8 Other external cause status
CPT/HCPCS: 36415; 71101; 80053; 83690; 84484; 85025; 93005; 99285